=== PATIENT | female | born 1965 | race Caucasian/White ===

== ENCOUNTER 2017-01-31 06:06 | Emergency (ER) | payer BC ==
[~2017-01-31] VITALS: Ht 162.6 cm; Wt 107.4 kg
[~2017-01-31 06:06] MED LIST: PANT40TA PO
[2017-01-31 06:09] VITALS: Ht 162.6 cm; Wt 107.4 kg
[2017-01-31] MEDS ORDERED: ACETAMINOPHEN 500 MG TAB PO ONE (06:21)
[2017-01-31] MEDS ORDERED: ACETAMINOPHEN 325 MG TAB PO STA (06:29)
[2017-01-31] MEDS ORDERED: SODIUM CHLORIDE 0.9% 1000ML 1,000 ML IV STA (06:53)
[2017-01-31] MEDS ORDERED: ONDANSETRON INJ 2 MG/ML 2 ML VIAL IV STA (06:55)
[2017-01-31 06:56] LABS: URINE APPEARANCE CLEAR (CLEAR); URINE BILIRUBIN NEG (NEG); URINE COLOR DK YELLOW; URINE EPITHELIAL CELL AUTO >30 /lpf (0-5); URINE NITRITE NEG (NEG); URINE SPECIFIC GRAVITY 1.024 (1.000-1.030); UROBILINOGEN NEG (NEG)
[2017-01-31 07:05] LABS: MANUAL MICROSCOPIC REQUIRED? NO; REVIEW REQ? YES
[2017-01-31 07:16] LABS: URINE MUCUS PRESENT (NONE PRSENT)
[2017-01-31 07:18] LABS: ZZUR CULT IF INDIC CLEAN CATCH YES
[2017-01-31] MEDS ORDERED: KETOROLAC TROMETHAMINE 30 MG/ML VIAL IV STA (07:34)
--- NOTE | 2017-01-31 07:35 | DIAGNOSTIC IMAGING REPORT ---
CHEST 2 VIEWS ROUTINE CLINICAL HISTORY: fever, cough dyspnea COMPARISON STUDY: No previous studies for comparison. FINDINGS: The bones soft tissues and hemidiaphragms are normal. The cardiomediastinal silhouette is normal. The lungs are clear. The pulmonary vasculature is normal. IMPRESSION: Negative chest. Electronically signed by: Arnold Swenson M.D. 01/31/2017 7:34 AM Dictated Date/Time: 01/31/2017 7:33 AM
[2017-01-31] MEDS ORDERED: OSEL75CA12 PO (07:44)
[2017-01-31 07:57] VITALS: TEMP 37.1
[2017-01-31 07:59] LABS: COMPLETE YES; HEMATOCRIT 40.4 % (37-47); LYMPH % 17.2 %; LYMPH ABS # 0.56 K/uL (1.2-3.4); MEAN CELL VOLUME 91.4 fL (80-100); MEAN CORPUSCULAR HEMOGLOBIN 31.4 pg (25-34); MEAN CORPUSCULAR HGB CONC 34.4 g/dl (32-36); MEAN PLATELET VOLUME 10.4 fL (7.4-10.4); MONO % 14.2 %; NEUT % 68.6 %; PLATELET COUNT 120 K/uL (130-400); RED BLOOD COUNT 4.42 M/uL (4.2-5.4); WHITE BLOOD COUNT 3.25 K/uL (4.8-10.8)
[2017-01-31 08:24] LABS: BUN/CREATININE RATIO 13.4 (10-20); CALCIUM 7.9 mg/dl (8.5-10.1); CREATININE 0.62 mg/dl (0.60-1.20); POTASSIUM 3.2 mmol/L (3.5-5.1)
[2017-01-31] MEDS ORDERED: POTASSIUM CHLORIDE 10 MEQ TABCR PO STA (08:34)
--- NOTE | 2017-01-31 08:39 | EMERGENCY ROOM VISIT NOTE ---
History First contact with patient: 06:43 Chief Complaint: ILLNESS Stated Complaint: SEVERE HEADACHE, BODY ACHE, KIDNEY PAIN History of Present Illness The patient is a 51 year old female who presents to the Emergency Room with complaints of headache, fever and body aches. She also admits to pain over her kidneys. The patient denies any flank pain. The patient denies any sore throat , ear pain, runny nose. She states that the headache is mostly in the frontal region but does radiate to the base of her skull. The patient states she has had similar headaches in the past. She took Tylenol without any relief. The patient states that she has felt chilled but did not take her temperature. She also has had a cough for several days. The patient denies any nausea or vomiting. The patient denies any urinary symptoms of frequency, urgency, dysuria or hematuria. Her current symptoms started 2 days ago. 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 Review of Systems 10 system review was performed and was negative unless stated otherwise history of present illness. Past Medical/Surgical History Medical Problems: (1) Gastroesophageal reflux disease Social History Smoking Status: Never Smoker Alcohol Use: none Housing Status: lives with family Occupation Status: employed Current/Historical Medications Scheduled Oseltamivir (Tamiflu), 75 MG PO BID Allergies Coded Allergies: Nut Tree (Unverified Allergy, Unknown, TINGLING IN MOUTH/THROAT, 01/31/17) Physical Exam Vital Signs Date Time Temp Pulse Resp B/P Pulse Ox O2 Delivery O2 Flow Rate FiO2 01/31/17 07:57 37.1 64 18 116/70 94 Room Air 01/31/17 06:09 38.3 87 18 121/74 96 Room Air Physical Exam PHYSICAL EXAM: Vital Signs were reviewed: Temperature 38.3, blood pressure 121/ 74, pulse 87, respiratory rate 18 Reviewed Nurse's notes and agree. Oxygen saturation is 96 % on room air which is normal . GENERAL: 51-year-old female appears in no acute distress. MENTAL STATUS: Alert, oriented, coherent. EARS: Canals clear. TMs good light reflex, no erythema or fluid level noted. NOSE: Nasal mucosa with moderate erythema engorgement. PHARYNX no erythema, no edema noted. No exudate noted. Airway is adequate. NECK: Supple, non-tender. No lymphadenopathy noted. LUNGS: Clear to auscultation without wheezes rales or rhonchi. CARDIAC: Regular rate and rhythm without murmur. BACK: No CVA tenderness noted. ABDOMEN: Positive bowel sounds all 4 quadrants. Soft, nontender to palpation without organomegaly or masses. SKIN: No rashes noted. Medical Decision & Procedures ER Provider Diagnostic Interpretation: CHEST 2 VIEWS ROUTINE CLINICAL HISTORY: fever, cough dyspnea COMPARISON STUDY: No previous studies for comparison. FINDINGS: The bones soft tissues and hemidiaphragms are normal. The cardiomediastinal silhouette is normal. The lungs are clear. The pulmonary vasculature is normal. IMPRESSION: Negative chest. Electronically signed by: Arnold Swenson M.D. 01/31/2017 7:34 AM Dictated Date/Time: 01/31/2017 7:33 AM Laboratory Results 01/31/17 07:40 Red Blood Count 4.42, Mean Corpuscular Volume 91.4, Mean Corpuscular Hemoglobin 31.4, Mean Corpuscular Hemoglobin Concent 34.4, Mean Platelet Volume 10.4, Neutrophils (%) (Auto) 68.6, Lymphocytes (%) (Auto) 17.2, Monocytes (%) (Auto) 14.2, Eosinophils (%) (Auto) 0.0, Basophils (%) (Auto) 0.0, Neutrophils # (Auto ) 2.23, Lymphocytes # (Auto) 0.56, Monocytes # (Auto) 0.46, Eosinophils # (Auto ) 0.00, Basophils # (Auto) 0.00 01/31/17 07:40 Test 01/31/17 06:20 01/31/17 06:25 01/31/17 07:40 Urine Color DK YELLOW Urine Appearance CLEAR (CLEAR) Urine pH 6.0 (4.5-7.5) Urine Specific House 1.024 (1.000-1.030) Urine Protein NEG (NEG) Urine Glucose (UA) NEG (NEG) Urine Ketones 1+ (NEG) Urine Occult Blood TRACE (NEG) Urine Nitrite NEG (NEG) Urine Bilirubin NEG (NEG) Urine Urobilinogen NEG (NEG) Urine Leukocyte Esterase SMALL (NEG) Urine WBC (Auto) 5-10 /hpf (0-5) Urine RBC (Auto) 0-4 /hpf (0-4) Urine Hyaline Casts (Auto) 1-5 /lpf (0-5) Urine Epithelial Cells (Auto) >30 /lpf (0-5) Urine Bacteria (Auto) 1+ (NEG) Urine Renal Epithelial Cells /lpf (0-5) Urine Mucus PRESENT (NONE PRSENT) Influenza Type A Antigen Neg for Influ A (NEG) Influenza Type B Antigen POS for Influ B (NEG) White Blood Count 3.25 K/uL (4.8-10.8) Red Blood Count 4.42 M/uL (4.2-5.4) Hemoglobin 13.9 g/dL (12.0-16.0) Hematocrit 40.4 % (37-47) Mean Corpuscular Volume 91.4 fL (80-100) Mean Corpuscular Hemoglobin 31.4 pg (25-34) Mean Corpuscular Hemoglobin Concent 34.4 g/dl (32-36) Platelet Count 120 K/uL (130-400) Mean Platelet Volume 10.4 fL (7.4-10.4) Neutrophils (%) (Auto) 68.6 % Lymphocytes (%) (Auto) 17.2 % Monocytes (%) (Auto) 14.2 % Eosinophils (%) (Auto) 0.0 % Basophils (%) (Auto) 0.0 % Neutrophils # (Auto) 2.23 K/uL (1.4-6.5) Lymphocytes # (Auto) 0.56 K/uL (1.2-3.4) Monocytes # (Auto) 0.46 K/uL (0.11-0.59) Eosinophils # (Auto) 0.00 K/uL (0-0.5) Basophils # (Auto) 0.00 K/uL (0-0.2) RDW Standard Deviation 42.0 fL (36.4-46.3) RDW Coefficient of Variation 12.4 % (11.5-14.5) Immature Granulocyte % (Auto) 0.0 % Immature Granulocyte # (Auto) 0.00 K/uL (0.00-0.02) Anion Gap 10.0 mmol/L (3-11) Est Creatinine Clear Calc Drug Dose 127.0 ml/min Estimated GFR () 120.2 Estimated GFR (Non- 103.7 BUN/Creatinine Ratio 13.4 (10-20) Calcium Level 7.9 mg/dl (8.5-10.1) Total Bilirubin 0.5 mg/dl (0.2-1) Direct Bilirubin 0.1 mg/dl (0-0.2) Aspartate Amino Transf (AST/SGOT) 27 U/L (15-37) Alanine Aminotransferase (ALT/SGPT) 24 U/L (12-78) Alkaline Phosphatase 82 U/L (45-117) Total Protein 6.7 gm/dl (6.4-8.2) Albumin 3.3 gm/dl (3.4-5.0) Lipase 61 U/L (73-393) Medications Administered Medications (Trade) Dose Ordered Sig/Chau Route Start Time Stop Time Status Last Admin Dose Admin Acetaminophen 1000 mg 1,000 mg STK-MED ONCE PO 01/31/17 06:21 01/31/17 06:25 DC 01/31/17 06:26 1,000 MG Sodium Chloride (Nss 1000ml) 1,000 ml @ 999 mls/hr Q1H1M STAT IV 01/31/17 06:53 01/31/17 07:53 DC 01/31/17 07:48 999 MLS/HR Ondansetron HCl (Zofran Inj) 4 mg NOW STAT IV 01/31/17 06:55 01/31/17 06:56 DC 01/31/17 07:55 4 MG Ketorolac Tromethamine (Toradol Inj) 30 mg NOW STAT IV 01/31/17 07:34 01/31/17 07:36 DC 01/31/17 07:54 30 MG ED Course The patient was evaluated. IV access was obtained. Patient was given 1 L normal saline wide-open. Patient was given Toradol 30 mg IV, Tylenol 1 g by mouth. CBC differential, renal profile was ordered. Urinalysis was ordered. Urine was reviewed and revealed +1 blood, small amount of leukocytes and some bacteria but there is also signs of contamination. This will be sent for culture. Rapid influenza was negative for a but positive for influenza B. Labs are reviewed. Labs are unremarkable except for a low potassium at 3.2. The patient was given a door 10 mEq by mouth. She was reevaluated and stated that her headache had resolved. The patient was discharged home in stable condition. Medical Decision Differential diagnosis include influenza, pneumonia, viral URI, bronchitis, acute sinusitis, UTI, pyelonephritis Impression Primary Impression: Influenza B Additional Impression: Hypokalemia Departure Information Dispostion Home / Self-Care Condition GOOD Prescriptions Oseltamivir (Tamiflu) 75 Mg Cap 75 MG PO BID for 5 Days, #10 CAP Prov: Susana Swenson PA-C 01/31/17 Referrals RV. Abdi MD (PCP) Forms HOME CARE DOCUMENTATION FORM, IMPORTANT VISIT INFORMATION, WORK / SCHOOL INSTRUCTIONS Patient Instructions My [facility] [employer] Additional Instructions Recommend eating a banana daily. Follow-up with your family doctor in one to 2 weeks for recheck. Take Tamiflu as prescribed. May also use [id number] symptomatic treatment as well as Tylenol and/or ibuprofen as needed for fever and body aches. Do not return to work until you're without a fever for 24 hours. Problem Qualifiers
[2017-01-31 08:58] VITALS: BP 118/65; PULSE 76; O2SAT 96
== END 2017-01-31 08:59 | disposition home or self-care (01) ==
LOC: C.EDB 06:08 → C.EDA 08:59
DX: J11.1 Influenza due to unidentified influenza virus with other respiratory manifestations (principal); E87.6 Hypokalemia; K21.9 Gastro-esophageal reflux disease without esophagitis

== ENCOUNTER 2018-07-06 13:26 | Observation (INO) | payer BC ==
[~2018-07-06] VITALS: Ht 162.6 cm; Wt 114.2 kg
[2018-07-06] MEDS ORDERED: SODIUM CHLORIDE 0.9% 1000ML 500 ML IV STA (14:13)
[2018-07-06] MEDS ORDERED: ASPIRIN 81 MG CHEW PO STA (14:13)
[2018-07-06] MEDS ORDERED: NITROGLYCERIN 2% OINTMENT 30GM TUBE EXT ONE ×2 (14:15→14:25)
[2018-07-06 14:31] LABS: INR 0.9 (0.9-1.1); PTT PATIENT 24.6 SECONDS (21.0-31.0)
[2018-07-06 14:32] LABS: HEMATOCRIT 43.4 % (37-47); HEMOGLOBIN 14.4 g/dL (12.0-16.0); MEAN CELL VOLUME 92.9 fL (80-100); MEAN CORPUSCULAR HEMOGLOBIN 30.8 pg (25-34); MEAN CORPUSCULAR HGB CONC 33.2 g/dl (32-36); MEAN PLATELET VOLUME 10.3 fL (7.4-10.4); PLATELET COUNT 201 K/uL (130-400); RED CELL DISTRIBUTION WIDTH CV 13.1 % (11.5-14.5); RED CELL DISTRIBUTION WIDTH SD 44.7 fL (36.4-46.3); WHITE BLOOD COUNT 7.35 K/uL (4.8-10.8)
--- NOTE | 2018-07-06 14:37 | DIAGNOSTIC IMAGING REPORT ---
CHEST ONE VIEW PORTABLE CLINICAL HISTORY: CHEST PAIN COMPARISON STUDY: Chest radiograph January 31, 2017. FINDINGS: Lung volumes are mildly diminished. Interstitial prominence is likely due to a hypoventilatory study. There is no evidence for pulmonary edema or pneumonia. Cardiomediastinal silhouette is unremarkable. IMPRESSION: No acute cardiopulmonary findings. Electronically signed by: Bhavik Moraes M.D. 07/06/2018 2:36 PM Dictated Date/Time: 07/06/2018 2:35 PM
[2018-07-06 14:38] LABS: ALBUMIN 3.6 gm/dl (3.4-5.0); ALKALINE PHOSPHATASE 118 U/L (45-117); ALT/SGPT 24 U/L (12-78); AST/SGOT 19 U/L (15-37); BLOOD UREA NITROGEN 17 mg/dl (7-18); CALCIUM 8.8 mg/dl (8.5-10.1); CARBON DIOXIDE 26 mmol/L (21-32); CREATININE 0.91 mg/dl (0.60-1.20); GLUCOSE 78 mg/dl (70-99); POTASSIUM 3.8 mmol/L (3.5-5.1); SODIUM 140 mmol/L (136-145); TOTAL PROTEIN 7.7 gm/dl (6.4-8.2)
[2018-07-06] MEDS ORDERED: OPTIRAY 320 IV PRN (15:30)
--- NOTE | 2018-07-06 16:24 | DIAGNOSTIC IMAGING REPORT ---
CT ANGIOGRAPHY OF THE CHEST, PULMONARY EMBOLUS PROTOCOL CLINICAL HISTORY: Chest pain and shortness of breath. COMPARISON STUDY: Chest radiograph January 31, 2017 and July 06, 2018. TECHNIQUE: Following IV administration of 86 mL of Optiray-320, helical axial images of the chest were obtained utilizing the pulmonary embolus protocol. Maximal intensity projections and sagittal and coronal reformats were viewed on an independent 3D workstation. IV contrast was administered without complication. A dose lowering technique was utilized adhering to the principles of ALARA. CT DOSE: 630.94 mGy.cm FINDINGS: No pulmonary embolus is identified. There is no thoracic aortic dissection. The size of the heart is normal. There is no pericardial effusion. No pathologically enlarged thoracic lymph nodes are noted. Central airways are patent. No pneumothorax or pleural effusion is present. There is no consolidation to suggest pneumonia. Bony thorax and upper abdomen are unremarkable. IMPRESSION: 1. No pulmonary emboli identified. 2. No acute intrathoracic findings. Electronically signed by: Bhavik Moraes M.D. 07/06/2018 4:23 PM Dictated Date/Time: 07/06/2018 4:16 PM
--- NOTE | 2018-07-06 16:44 | EMERGENCY ROOM VISIT NOTE ---
History Report prepared by Joby: Vidhi Simmons Under the Supervision of: Dr. Romeo Roberts M.D. 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 She describes her chest pain as compression and rates it as a 5/10 in severity. Pt reports activity worsens her pain. She follows with Dr. 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 A total of 10 systems reviewed and were otherwise negative. Past Medical & Surgical Medical Problems: (1) Gastroesophageal reflux disease Family History Cancer Hypertension Social History Smoking Status: Never Smoker Alcohol Use: none Housing Status: lives with family Occupation Status: employed Current/Historical Medications No Active Prescriptions or Reported Meds Allergies Coded Allergies: Nut Tree (Unverified Allergy, Unknown, TINGLING IN MOUTH/THROAT, 05/07/18) Physical Exam Vital Signs Date Time Temp Pulse Resp B/P (MAP) Pulse Ox O2 Delivery O2 Flow Rate FiO2 07/06/18 16:39 77 16 145/80 97 Room Air 07/06/18 14:58 76 18 178/106 99 Room Air 07/06/18 14:34 70 07/06/18 14:32 99 Room Air 07/06/18 14:31 99 Room Air 07/06/18 13:31 36.5 71 18 146/93 100 Room Air Physical Exam GENERAL: Patient is in no acute distress. HEENT: No acute trauma, normocephalic atraumatic, mucous membranes moist, no nasal congestion, no scleral icterus. NECK: No stridor, no adenopathy, no meningismus, trachea is midline. LUNGS: Clear to auscultation bilaterally, no wheeze, no rhonchi, breath sounds equal. CHEST: Somewhat tender over the left anterior chest wall. HEART: Without murmurs gallops or rubs, regular rate and rhythm. ABDOMEN: Soft, nontender, bowel sounds positive, no hernias, no peritonitis. EXTREMITIES: No cyanosis or edema, full range of motion of all the joints without pain or difficulty, no signs for acute trauma. NEUROLOGIC: Oriented x 3, no acute motor or sensory deficits, no focal weakness. SKIN: No rash, no jaundice, no diaphoresis. Medical Decision & Procedures ER Provider Diagnostic Interpretation: Radiology results as stated below per my review and radiologist interpretation: CHEST ONE VIEW PORTABLE CLINICAL HISTORY: CHEST PAIN COMPARISON STUDY: Chest radiograph January 31, 2017. FINDINGS: Lung volumes are mildly diminished. Interstitial prominence is likely due to a hypoventilatory study. There is no evidence for pulmonary edema or pneumonia. Cardiomediastinal silhouette is unremarkable. IMPRESSION: No acute cardiopulmonary findings. Electronically signed by: Bhavik Moraes M.D. 07/06/2018 2:[address] ANGIOGRAPHY OF THE CHEST, PULMONARY EMBOLUS PROTOCOL CLINICAL HISTORY: Chest pain and shortness of breath. COMPARISON STUDY: Chest radiograph January 31, 2017 and July 06, 2018. TECHNIQUE: Following IV administration of 86 mL of Optiray-320, helical axial images of the chest were obtained utilizing the pulmonary embolus protocol. Maximal intensity projections and sagittal and coronal reformats were viewed on an independent 3D workstation. IV contrast was administered without complication. A dose lowering technique was utilized adhering to the principles of ALARA. CT DOSE: 630.94 mGy.cm FINDINGS: No pulmonary embolus is identified. There is no thoracic aortic dissection. The size of the heart is normal. There is no pericardial effusion. No pathologically enlarged thoracic lymph nodes are noted. Central airways are patent. No pneumothorax or pleural effusion is present. There is no consolidation to suggest pneumonia. Bony thorax and upper abdomen are unremarkable. IMPRESSION: 1. No pulmonary emboli identified. 2. No acute intrathoracic findings. Electronically signed by: Bhavik Moraes M.D. 07/06/2018 4:23 PM Laboratory Results 07/06/18 13:55 07/06/18 13:55 Test 07/06/18 13:55 Red Blood Count 4.67 M/uL (4.2-5.4) Mean Corpuscular Volume 92.9 fL (80-100) Mean Corpuscular Hemoglobin 30.8 pg (25-34) Mean Corpuscular Hemoglobin Concent 33.2 g/dl (32-36) RDW Standard Deviation 44.7 fL (36.4-46.3) RDW Coefficient of Variation 13.1 % (11.5-14.5) Mean Platelet Volume 10.3 fL (7.4-10.4) Prothrombin Time 9.9 SECONDS (9.0-12.0) Prothromb Time International Ratio 0.9 (0.9-1.1) Activated Partial Thromboplast Time 24.6 SECONDS (21.0-31.0) Partial Thromboplastin Ratio 0.9 D-Dimer 1140 ug/L FEU (0-500) Anion Gap 9.0 mmol/L (3-11) Est Creatinine Clear Calc Drug Dose 90.7 ml/min Estimated GFR () 82.9 Estimated GFR (Non- 71.5 BUN/Creatinine Ratio 19.0 (10-20) Calcium Level 8.8 mg/dl (8.5-10.1) Total Bilirubin 0.4 mg/dl (0.2-1) Aspartate Amino Transf (AST/SGOT) 19 U/L (15-37) Alanine Aminotransferase (ALT/SGPT) 24 U/L (12-78) Alkaline Phosphatase 118 U/L (45-117) Troponin I < 0.015 ng/ml (0-0.045) Total Protein 7.7 gm/dl (6.4-8.2) Albumin 3.6 gm/dl (3.4-5.0) Globulin 4.1 gm/dl (2.5-4.0) Albumin/Globulin Ratio 0.9 (0.9-2) Laboratory results reviewed by me. Medications Administered Medications (Trade) Dose Ordered Sig/Chau Route Start Time Stop Time Status Last Admin Dose Admin Aspirin (Aspirin Chew) 324 mg NOW STAT PO 07/06/18 14:13 07/06/18 14:16 DC 07/06/18 14:26 324 MG Nitroglycerin (Nitroglycerin 2% Oint) 1 inch NOW ONCE EXT 07/06/18 14:15 07/06/18 14:16 DC 07/06/18 14:26 1 INCH Sodium Chloride 500 ml @ 999 mls/hr Q31M STAT IV 07/06/18 14:13 07/06/18 14:43 DC 07/06/18 14:13 999 MLS/HR ECG Per My Interpretation Indication: chest pain Rate (beats per minute): 82 Rhythm: normal sinus Findings: other (no ST elevation, no PVCs) ED Course 1410: The patient was evaluated in room C6. A complete history and physical exam was performed. 1413: Ordered Sodium Chloride 500 ml @ 999 mls/hr IV, Aspirin 324 mg PO 1415: Ordered Nitroglycerin 1 inch EXT 1442: I checked on the patient at this time. I recommended she stay in the hospital for further evaluation. She is in agreement with this plan. 1445: Discussed the patient's case with Dr. Collins, [facility] Hospitalist. The patient will be evaluated for further management. 1518: I checked on the patient at this time. I updated her on the need of a CT of her chest. 1623: CT is negative.Shows no evidence of a PE. Medical Decision Differential diagnosis: Etiologies such as musculoskeletal pain, OH, angina, aortic dissection, PE, pneumothorax, anemia, as well as other traumatic pathologies were entertained. There is no leukocytosis or concerning anemia. No significant electrolyte abnormality, kidney failure or hepatitis. No coagulopathy. EKG shows a normal sinus rhythm, no acute ischemia. Cardiac enzyme testing 1 is not consistent with acute cardiac injury. Chest x-ray does not show mediastinal widening, pneumonia or pneumothorax. D-dimer was elevated. Chest CT does not show evidence for PE, no evidence for aortic dissection. Patient received oral aspirin, nitroglycerin paste, she does feel improved. She was given IV saline. Patient requires a hospital stay. She has exertional chest pain with associated symptoms. I do think a cardiac workup is warranted. I spoke to the patient and hospice case manager. The on-call hospitalist was consulted. Of note, there is some tenderness over the left anterior chest wall, there may be a muscular skeletal component to her pain. Medication Reconcilliation Current Medication List: was personally reviewed by me Blood Pressure Screening Patient's blood pressure: Elevated blood pressure Referred to Hospitalist Consults Time Called: 1442 Consulting Physician: Dr. Collins, [facility] Hospitalist Returned Call: 1445 Discussed the patient's case with Dr. Collins, [facility] Hospitalist. The patient will be evaluated for further management. Impression Primary Impression: Precordial chest pain Scribe Attestation The scribe's documentation has been prepared under my direction and personally reviewed by me in its entirety. I confirm that the note above accurately reflects all work, treatment, procedures, and medical decision making performed by me. Departure Information Dispostion Being Evaluated By Hospitalist (Dr. Collins, [facility] Hospitalist) Prescriptions No Active Prescriptions or Reported Meds Referrals RV. Abdi MD (PCP) Patient Instructions My [facility]
[2018-07-06] MEDS ORDERED: ZOLPIDEM TARTRATE 5 MG TAB PO PRN (17:45)
[2018-07-06] MEDS ORDERED: ACETAMINOPHEN 325 MG TAB PO PRN (17:45)
[2018-07-06] MEDS ORDERED: MoRPHine SULFATE 2 MG/ML CARP IV PRN (17:45)
[2018-07-06] MEDS ORDERED: POLYETHYLENE (MIRALAX) 17 GM PACK PO PRN (17:45)
[2018-07-06] MEDS ORDERED: MAGNESIUM HYDROXIDE SUSP 30 ML UDC PO PRN (17:45)
[2018-07-06] MEDS ORDERED: ALUMINUM/MAGNESIUM/SIMETH (MAALOX MAX) 30 ML UDC PO PRN (17:45)
[2018-07-06] MEDS ORDERED: ONDANSETRON INJ 2 MG/ML 2 ML VIAL IV PRN (17:45)
[2018-07-06] MEDS ORDERED: NITROGLYCERIN 0.4 MG SL PER TAB CHARGE SL PRN (17:45)
[2018-07-06] MEDS ORDERED: IV FLUIDS COMPLETED PRN (18:15)
--- NOTE | 2018-07-06 18:29 | History and Physical ---
History & Physical Date & Time of Service: Jul 06, 2018 at 18:10 Chief Complaint: Chest Pain, Sob Primary Care Physician: RV. Abdi MD History of Present Illness Source: patient, hospital records, other 53 y/o F who does not report a significant medical history. She had onset of central CP when walking around 4 days prior. She reports that this has recurred daily since then. Today the pain was more intense and lasted longer. The pain is nonradiating and accompanied by SOB, nausea and diaphoresis. Initial labs and an EKG obtained in the ER did not support acute ischemia. Her D dimer was elevated so that a CTA was ordered. This proved negative for PE. 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 Smoking Status: Never Smoker Occupational Status: employed Allergies Coded Allergies: Nut Tree (Unverified Allergy, Unknown, TINGLING IN MOUTH/THROAT, 05/07/18) Home Medications No Active Prescriptions or Reported Meds Review of Systems Constitutional: + sweats, No fever, No chills Eyes: No worsening of vision ENT: No hearing loss, No unusual epistaxis, No nasal symptoms Respiratory: + shortness of breath, No cough, No sputum, No wheezing Cardiovascular: + chest pain Abdomen: + nausea, No pain Musculoskeletal: No joint pain Genitourinary - Female: No dysuria, No urinary frequency Neurologic: No memory loss, No paralysis, No weakness Psychiatric: No depression symptoms Endocrine: No fatigue Hematologic / Lymphatic: No abnormal bleeding/bruising Integumentary: No rash Allergic / Immunologic: No environmental allergies Physical Exam Vital Signs Date Time Temp Pulse Resp B/P (MAP) Pulse Ox O2 Delivery O2 Flow Rate FiO2 07/06/18 16:39 77 16 145/80 97 Room Air 07/06/18 14:58 76 18 178/106 99 Room Air 07/06/18 14:34 70 07/06/18 14:32 99 Room Air 07/06/18 14:31 99 Room Air 07/06/18 13:31 36.5 71 18 146/93 100 Room Air General Appearance: WD/WN, no apparent distress, + obese, + pertinent finding ( PLeasant, overweight, middle-aged F - no distress) Head: normocephalic Eyes: normal inspection ENT: normal ENT inspection Neck: supple, no JVD Respiratory/Chest: chest non-tender, lungs clear, normal breath sounds Cardiovascular: regular rate, rhythm Abdomen/GI: normal bowel sounds, non tender, soft Back: normal inspection, no CVA tenderness Extremities/Musculoskelatal: normal inspection, no calf tenderness, normal capillary refill 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, no motor/sensory deficits, alert, oriented x 3 Skin: normal color Diagnostics Laboratory Results Results Past 24 Hours Test 07/06/18 13:55 Range/Units White Blood Count 7.35 4.8-10.8 K/uL Red Blood Count 4.67 4.2-5.4 M/uL Hemoglobin 14.4 12.0-16.0 g/dL Hematocrit 43.4 37-47 % Mean Corpuscular Volume 92.9 80-100 fL Mean Corpuscular Hemoglobin 30.8 25-34 pg Mean Corpuscular Hemoglobin Concent 33.2 32-36 g/dl RDW Standard Deviation 44.7 36.4-46.3 fL RDW Coefficient of Variation 13.1 11.5-14.5 % Platelet Count 201 130-400 K/uL Mean Platelet Volume 10.3 7.4-10.4 fL Prothrombin Time 9.9 9.0-12.0 SECONDS Prothromb Time International Ratio 0.9 0.9-1.1 Activated Partial Thromboplast Time 24.6 21.0-31.0 SECONDS Partial Thromboplastin Ratio 0.9 D-Dimer 1140 0-500 ug/L FEU Sodium Level 140 136-145 mmol/L Potassium Level 3.8 3.5-5.1 mmol/L Chloride Level 105 98-107 mmol/L Carbon Dioxide Level 26 21-32 mmol/L Anion Gap 9.0 3-11 mmol/L Blood Urea Nitrogen 17 7-18 mg/dl Creatinine 0.91 0.60-1.20 mg/dl Est Creatinine Clear Calc Drug Dose 90.7 ml/min Estimated GFR () 82.9 Estimated GFR (Non- 71.5 BUN/Creatinine Ratio 19.0 10-20 Random Glucose 78 70-99 mg/dl Calcium Level 8.8 8.5-10.1 mg/dl Total Bilirubin 0.4 0.2-1 mg/dl Aspartate Amino Transf (AST/SGOT) 19 15-37 U/L Alanine Aminotransferase (ALT/SGPT) 24 12-78 U/L Alkaline Phosphatase 118 45-117 U/L Troponin I < 0.015 0-0.045 ng/ml Total Protein 7.7 6.4-8.2 gm/dl Albumin 3.6 3.4-5.0 gm/dl Globulin 4.1 2.5-4.0 gm/dl Albumin/Globulin Ratio 0.9 0.9-2 Diagnostic Radiology CTA: 1. No pulmonary emboli identified. 2. No acute intrathoracic findings. EKG NSR Impression Assessment and Plan 53 y/o F who does not report a significant medical history. She had onset of central CP when walking around 4 days prior. She reports that this has recurred daily since then. Today the pain was more intense and lasted longer. The pain is nonradiating and accompanied by SOB, nausea and diaphoresis. Initial labs and an EKG obtained in the ER did not support acute ischemia. Her D dimer was elevated so that a CTA was ordered. This proved negative for PE. The pt will be placed on telemetry. We will trend her enzymes and provide ASA. We will check a fasting lipid profile AM. She will be scheduled for an AM stress test. It is noted that her BP has been intermittently high. She received NTG on arrival and we will provide a low dose of a B ashleigh to gauge effect. This should be trended to determine if outpt treatment or referral is merited. Full code - Heparin prophylaxis Total time for this admit including review of labs, meds, imaging, records - discussion with pt and ER attending - 35 min Resuscitation Status VTE Prophylaxis Will order VTE Prophylaxis: Yes
[2018-07-06 19:07] VITALS: BP 169/103; PULSE 77; TEMP 36.7; O2SAT 96; Ht 162.6 cm; Wt 114.2 kg
[2018-07-06] MEDS ORDERED: METOPROLOL TARTRATE 25 MG TAB PO ONE (19:30)
[2018-07-06] MEDS: D5NSS + 20MEQ KCL 1,000 ML IV SCH (19:39)
[2018-07-06 20:00] VITALS: O2SAT 96
[2018-07-06] MEDS: HEPARIN SOD 5000 UNIT/0.5 ML CARP SQ SCH (20:44)
[2018-07-06 23:22] VITALS: BP 135/71; PULSE 75; TEMP 37; O2SAT 96
[2018-07-07 02:59] LABS: CHOLESTEROL 157 mg/dl (0-200); LDL CHOLESTEROL CALCULATED 97 mg/dl
[2018-07-07 03:28] VITALS: BP 121/81; PULSE 74; TEMP 37; O2SAT 97
[2018-07-07] MEDS: D5NSS + 20MEQ KCL 1,000 ML IV SCH (04:23)
[2018-07-07] MEDS: HEPARIN SOD 5000 UNIT/0.5 ML CARP SQ SCH (05:42)
[2018-07-07 06:41] VITALS: BP 130/86; PULSE 72; TEMP 37.1; O2SAT 98
[2018-07-07] MEDS ORDERED: ASPIRIN 81 MG ECTAB PO SCH (09:00)
[2018-07-07 11:44] VITALS: BP 136/63; PULSE 74; TEMP 37; O2SAT 91
--- NOTE | 2018-07-07 12:12 | Discharge Instructions ---
Discharge Instructions Date of Service Jul 07, 2018. Admission Reason for Admission: Chest Pain In Adult Discharge Discharge Diagnosis / Problem: non cardiac chest pain Discharge Goals Goal(s): Diagnostic testing, Therapeutic intervention Activity Recommendations Activity Limitations: as noted below Lifting Limitations: gradually increase as tolerated Driving or Machine Use: no limitations . Current Hospital Diet Patient's current hospital diet: Discharge Diet Recommended Diet: AHA Diet (Heart Healthy) Procedures Procedures Performed: Cardiac Stress Echo is negative for reproducible chest pain or malfunction Pending Studies Studies pending at discharge: no Laboratory Results Lipid Panel Test 07/07/18 02:14 Range/Units Triglycerides Level 46 0-150 mg/dl Cholesterol Level 157 0-200 mg/dl HDL Cholesterol 51 mg/dl Cholesterol/HDL Ratio 3.1 LDL Cholesterol, Calculated 97 mg/dl Medical Emergencies . Who to Call and When: Medical Emergencies: If at any time you feel your situation is an emergency, please call 911 immediately. . Non-Emergent Contact Non-Emergency issues call your: Primary Care Provider (keep aug 01 apt [facility] [address] Roland) Call Non-Emergent contact if: temperature is above 101, your pain is not controlled . . "Provider Documentation" section prepared by Blas Rhoades. .
[2018-07-07 12:15] VITALS: BP 142/90; PULSE 70; TEMP 37.1; O2SAT 98
[2018-07-07 12:16] VITALS: BP 142/90; PULSE 70; TEMP 37.1; O2SAT 98
--- NOTE | 2018-07-07 13:38 | Discharge Summary ---
Discharge Summary Date of Service Jul 07, 2018. Discharge Summary Admission Date: Jul 06, 2018 at 18:10 Discharge Date: Jul 07, 2018 Discharge Disposition: Home Principal Diagnosis: non cardiac chest pain Procedures: stress test Medication Reconciliation Medication Profile: No Active Prescriptions or Reported Meds Discharge Exam Review of Systems: Constitutional: No fever, No chills Cardiovascular: No chest pain, No orthopnea Abdomen: No pain, No nausea Physical Exam: General Appearance: WD/WN, no apparent distress Eyes: normal inspection, sclerae normal Neck: supple, no JVD Respiratory/Chest: chest non-tender, lungs clear Cardiovascular: regular rate, rhythm, no murmur Hospital Course Pt was presented with exertional chest pain , had negative serial troponin and underwent a stress echocardiogram that ruled out chest pain associated with myocardial malfunction, additionally did have elevated D Dimer on presentation and CT angiogram ruled out PE We discussed possibly starting PPI or H2 pt opted to speak to PCP about this I also recommended she consider screening colonoscopy Total Time Spent: Greater than 30 minutes This includes examination of the patient, discharge planning, medication reconciliation, and communication with other providers. Discharge Instructions Please refer to the electronic Patient Visit Report (Discharge Instructions) for additional information.
--- NOTE | 2018-07-07 16:38 | EXERCISE STRESS ECHO ---
*NOTICE TO RECEIVING [employer] This information is strictly Confidential and protected under [place] law. [place] law prohibits you from making any further disclosure of this information unless further disclosure is expressly permitted by the written consent of the person to whom it pertains or is authorized by law. A general authorization for the release of medical or other information is not sufficient for this purpose. Hospital accepts no responsibility if the information is made available to any other person, INCLUDING THE PATIENT. Interpretation Summary * Name: NANDINI OLIVA Study Date: 07/07/2018 09:51 AM BP: 142/66 mmHg * Patient Location: C.2E\S\E203\S\1 HR: 67 * : 1965 (M/d/yyyy) Gender: Female Height: 64 in * Age: 53 yrs Ethnicity: CA Weight: 251 lb * Ordering Physician: Blas Rhoades * Referring Physician: Self, Referred * Performed By: Lori Mckeon RCS * * Reason For Study: CHEST PAIN * BSA: 2.2 m2 * -- Conclusions -- * 1. Negative exercise stress echo for ischemia at 90% MPHR. * 2. Negative stress ECG for ischemia. * 3. Exercised 4:01 min, acheiving 5.8 METS. No exercise induced chest pain. * 4. Normal resting LV size and function. EF 55-60%. Normal RV size and function. No significant valvular pathology. * 5. No prior studies for comparison. Procedure Details * ECHOEX, CPT #[id number] * ECHO COLOR FLOW, CPT #[id number] * ECHO DOPPLER, CPT #[id number] Left Ventricular Findings with Stress * This was essentially a normal study. Left Ventricle * The left ventricle is grossly normal size. * There is normal left ventricular wall thickness. * Ejection Fraction = 55-60%. * The left ventricular ejection fraction increases normally with stress. The left ventricular end-systolic cavity size reduces post-stress (normal response). The left ventricular wall motion with stress is normal. Right Ventricle * The right ventricle is grossly normal size. * The right ventricular systolic function is normal as assessed by tricuspid annular plane systolic excursion (TAPSE) (normal >1.5 cm). Atria * The left atrial size is normal. * Right atrial size is normal. * No ASD detected; PFO is not assessed. Mitral Valve * The mitral valve is grossly normal. * There is no mitral valve stenosis. * There is trace mitral regurgitation. Tricuspid Valve * The tricuspid valve is not well visualized, but is grossly normal. * There is trace tricuspid regurgitation. * Right ventricular systolic pressure is normal. Aortic Valve * The aortic valve is normal in structure and function. * The aortic valve is trileaflet. * No hemodynamically significant valvular aortic stenosis. * There is no significant aortic regurgitation. Pulmonic Valve * The pulmonary valve is inadequately visualized, but the Doppler data is adequate for interpretation. * There is no significant pulmonary regurgitation. Great Vessels * The aortic root and proximal ascending aorta are normal sized. Pericardium * There is no pericardial effusion. Stress Parameters * Normal baseline electrocardiogram. * Stress ECG: No ST changes. No arrhythmias. * No arrhythmia were noted with stress. * Rest heart rate was '67' BPM. * Rest blood pressure was '142' * Maximum heart rate achieved was 66 bpm. * Maximum heart rate was 90 % of maximum age-predicted heart rate. * Maximum blood pressure was '146/88' * Total exercise time was '4:01' * Maximum exercise MET level achieved was '5.8' METS * Maximum treadmill speed was '2.5' miles per hour. * Maximum treadmill elevation was '12'% grade. * Exercise was terminated due to 'fatigue' Left Ventricular Findings with Stress * The study was technically good with many images being of high quality. MMode 2D Measurements and Calculations IVSd 0.87 cm IVSs 1.2 cm LVIDd 4.9 cm LVIDs 3.2 cm LVPWd 0.85 cm LVPWs 1.3 cm IVS/LVPW 1.0 FS 35.0 % EDV(Teich) 110.4 ml ESV(Teich) 39.6 ml EF(Teich) 64.1 % EDV(cubed) 114.4 ml ESV(cubed) 31.4 ml EF(cubed) 72.5 % % IVS thick 33.1 % % LVPW thick 59.4 % LV mass(C)d 140.9 grams LV mass(C)dI 65.4 grams/m\S\2 LV mass(C)s 125.0 grams LV mass(C)sI 58.0 grams/m\S\2 SV(Teich) 70.8 ml SI(Teich) 32.9 ml/m\S\2 SV(cubed) 83.0 ml SI(cubed) 38.5 ml/m\S\2 Ao root diam 3.4 cm Ao root area 9.3 cm\S\2 ACS 1.5 cm LA dimension 3.9 cm asc Aorta Diam 2.6 cm LA/Ao 1.1 EDV(MOD-sp4) 93.0 ml ESV(MOD-sp4) 47.0 ml EF(MOD-sp4) 49.5 % EDV(MOD-sp2) 116.0 ml ESV(MOD-sp2) 49.0 ml EF(MOD-sp2) 57.8 % SV(MOD-sp4) 46.0 ml SI(MOD-sp4) 21.4 ml/m\S\2 SV(MOD-sp2) 67.0 ml SI(MOD-sp2) 31.1 ml/m\S\2 Doppler Measurements and Calculations MV E max rodolfo 80.2 cm/sec MV A max rodolfo 62.1 cm/sec MV E/A 1.3 MV P1/2t max rodolfo 97.8 cm/sec MV P1/2t 68.1 msec MVA(P1/2t) 3.2 cm\S\2 MV dec slope 420.7 cm/sec\S\2 MV dec time 0.23 sec Ao V2 max 132.7 cm/sec Ao max PG 7.0 mmHg Ao max PG (full) 3.4 mmHg LV V1 max PG 3.6 mmHg LV V1 max 95.1 cm/sec PA V2 max 100.9 cm/sec PA max PG 4.1 mmHg TR max rodolfo 209.1 cm/sec
== END 2018-07-07 12:45 | disposition home or self-care (01) ==
LOC: C.EDB 13:28 → EDBEDREQ 18:06 → C.2E 18:10 → ENRESERV 18:21
PROVIDERS: ADMIT Internal Medicine; ATTEND Internal Medicine
DX: R07.89 Other chest pain (principal); E66.9 Obesity, unspecified; K21.9 Gastro-esophageal reflux disease without esophagitis; Z82.49 Family history of ischemic heart disease and other diseases of the circulatory system; Z68.42 Body mass index [BMI] 45.0-49.9, adult

== ENCOUNTER 2022-05-07 21:50 | Inpatient (IN) ==
[2022-05-08 01:24] LABS: Basophils # (auto) 0.01 K/uL (0-0.2); Basophils % (auto) 0.1 %; Eosinophils # (auto) 0.15 K/uL (0-0.5); Eosinophils % (auto) 1.1 %; Hematocrit (blood only) 42.5 % (37-47); Hemoglobin 14.1 g/dL (12.0-16.0); Immature Granulocytes # (auto) 0.04 K/uL (0.00-0.02); Immature Granulocytes % (auto) 0.3 %; Mean Corpuscular Hemoglobin 30.9 pg (25-34); Mean Corpuscular Hgb Conc 33.2 g/dL (32-36); Mean Corpuscular Volume 93.2 fL (80-100); Monocytes # (auto) 0.86 K/uL (0.11-0.59); Monocytes % (auto) 6.2 %; Neutrophils # (auto) 11.61 K/uL (1.4-6.5); Neutrophils % (auto) 84.3 %; Platelet Count 200 K/uL (130-400); RDW Standard Deviation 44.7 fL (36.4-46.3); Red Blood Count 4.56 M/uL (4.2-5.4); White Blood Count 13.77 K/uL (4.8-10.8)
[2022-05-08 01:39] LABS: Albumin Globulin Ratio 1.3 (0.9-2); Albumin Level 3.9 gm/dl (3.4-5.0); BUN Creatinine Ratio 24.6 (10-20); Creatinine Clr Calc Pharmacy 116.8 ml/min; Est GFR (African American) 111.2 ml/min; Magnesium 1.9 mg/dl (1.7-2.4); Total Protein 6.9 gm/dl (6.0-8.3)
[2022-05-08] MEDS ORDERED: ONDANSETRON INJ 2 MG/ML 2 ML VIAL IV STA ×2 (01:42→01:50)
[2022-05-08] MEDS ORDERED: KETOROLAC 30 MG/ML VIAL IV ONE (01:42)
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
[2022-05-08 02:20] LABS: Appearance Urine Clear (Clear); Bacteria Urine Automated Negative (Negative); Bilirubin Urine Negative (Negative); Blood Urine Negative (Negative); Cast Urine Automated 0 /lpf (0-5); Color Urine Yellow; Glucose Urine UA Negative (Negative); Ketones Urine Negative (Negative); Leukocyte Esterase Urine Trace (Negative); Nitrite Urine Negative (Negative); Protein Urine Negative (Negative); RBC Urine Automated 0-4 /hpf (0-4); Specific Gravity Urine 1.011 (1.000-1.030); Urobilinogen Urine Negative (Negative); pH Urine 7.5 (4.5-7.5)
[2022-05-08 02:53] LABS: Influenza A virus by PCR Negative (Neg); Influenza B virus by PCR Negative (Neg); RSV by PCR Negative (Neg); SARS CoV2 RNA(COVID-19) InHosp NEGATIVE (Negative)
[2022-05-08 03:22] LABS: Partial Thromboplastin Time 26.2 Seconds (21.0-31.0); Prothrombin Time 10.6 Seconds (9.0-12.0)
[2022-05-08] MEDS ORDERED: HYDROmorphone INJ 1 MG/ML SYRINGE IV STA (04:50)
[2022-05-08] MEDS ORDERED: cefTRIAXone SODIUM 1,000 MG/50 ML BAG IV STA (04:55)
[2022-05-08] MEDS ORDERED: VANCOMYCIN CONSULT ACTIVE PRN (04:55)
[2022-05-08] MEDS ORDERED: VANCOMYCIN HCL 2,500 MG in SODIUM CHLORIDE 0.9% 500 ML IV ONE (04:55)
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
[2022-05-08] MEDS ORDERED: ACETAMINOPHEN 325 MG TAB PO PRN (08:15)
[2022-05-08] MEDS ORDERED: ONDANSETRON INJ 2 MG/ML 2 ML VIAL IV PRN (08:15)
[2022-05-08] MEDS ORDERED: PIPERACILLIN/TAZOBACTAM 4.5 GM/120 ML BAG IV STA (08:26)
[2022-05-08] MEDS ORDERED: ENOXAPARIN INJ 40 MG/0.4 ML SYR SQ SCH (09:00)
[2022-05-08] MEDS ORDERED: PANTOprazole 40 MG TAB PO SCH (09:00)
--- NOTE | 2022-05-08 09:46 | Pharmacy Report ---
Pharmacy Vanc AUC Short Note - Date of Service May 08, 2022 - Assessment & Plan Assessment 57 year old F receiving vancomycin/Zosyn for treatment of SSTI. Pertinent microbiologic data includes: N/A. Day # 1 of antimicrobial therapy. Plan Vancomycin * AUC/NAOMY is the preferred PK/PD target for vancomycin * AUC guided dosing is effective and associated with decreased risk of nephrotoxicity compared to traditional trough targets * vancomycin 1250 mg IV q12 is predicted to achieve target AUC/NAOMY of 400-600 mg/L.hr and may be associated with a 11 % risk of nephrotoxicity * Trough to be ordered if vancomycin continued beyond 48 hours Pharmacy will continue to follow and will adjust dose/frequency as necessary. Thank you.
[2022-05-08] MEDS ORDERED: PIPERACILLIN/TAZOBACTAM 4.5 GM/120ML D5W IV ONE (11:17)
--- NOTE | 2022-05-08 13:32 | Electrocardiogram Report ---
Test Reason : Blood Pressure : / mmHG Vent. Rate : 081 BPM Atrial Rate : 081 BPM P-R Int : 134 ms QRS Dur : 080 ms QT Int : 356 ms P-R-T Axes : 035 001 027 degrees QTc Int : 413 ms Normal sinus rhythm Cannot rule out Anterior infarct , age undetermined Abnormal ECG When compared with ECG of 06-JUL-2018 13:37, No significant change was found Confirmed by Osorio Lynch ([id number]) on 05/08/2022 1:32:35 PM Referred By: REFERRED SELF Confirmed By:Osorio Lynch
[2022-05-08] MEDS ORDERED: PIPERACILLIN/TAZOBACTAM 4.5 GM in DEXTROSE 5% 100 ML IV SCH (14:00)
--- NOTE | 2022-05-08 14:04 | Discharge Summary ---
Date of Service May 08, 2022 Admission HPI Per Admitting Provider The patient is a 57-year-old female with past medical history including hypertension, disc metabolic syndrome X, esophageal stricture, hiatal hernia, and morbid obesity. She presents with symptoms as noted above. She did receive a tetanus booster yesterday. Admission Exam Per Admitting Provider The patient is awake, alert and oriented 3, well developed and well nourished, normocephalic and atraumatic, lying in bed and in no acute distress. HEENT--PERRL, EOMI, mucous membranes and oropharynx dry. Neck--supple. No JVD. No bruits. Thyroid normal, trachea midline, no adenopathy. Heart--normal S1 and S2. No murmurs, rubs or gallops. Lungs--clear bilaterally, no respiratory distress, no accessory muscle use. Abdomen--normal bowel sounds and soft. Nontender. Nondistended. Morbidly obese Extremities--no cyanosis or clubbing. No edema. Dermatologic--right thigh wound with proper apposition, with moderate erythema in demarcated area Neurologic--cranial nerves II through XII grossly intact. Rheumatologic--normal range of motion. Psychiatric--normal affect. Principal Diagnosis Right thigh laceration with wound infection Discharge Exam Constitutional WD/WN, vitals as above Eyes PERRL, conjunctivae normal, anicteric sclerae ENMT external ear and nose normal, oropharynx normal Neck trachea midline, no thyromegaly Respiratory normal respiratory effort, lungs clear to auscultation Cardiovascular RRR, no murmur, no edema Chest (Breasts) Chest: normal inspection of chest Skin 8cm laceration with suture repair noted on anterior right thigh with surrounding warmth erythema swelling and bruising noted within marker boundary made yesterday, no exudate noted, mild pain on palpation. Discharge Data Allergies Allergy/AdvReac Type Severity Reaction Status Date / Time peanut Allergy Intermediate tingling Verified 08/28/21 16:30 in mouth/throat tree nut Allergy Intermediate TINGLING Verified 08/28/21 16:30 IN MOUTH/THROAT Consultations 05/08/22 05:06 ED Decision to Admit Stat Hospital Course (1) Wound infection, posttraumatic: 57F with PMH GERD HTN here for fever 2/2 to right thigh laceration with wound infection (1) Wound infection, posttraumatic: Patient started on vancomycin IV and ceftriaxone IV in ED, switched to Vancomycin and zosyn IV. No repeat fevers noted in hospital. Erythema borders marked in ink, currently have not spread past borders. Patient to be discharged on Augmentin 875mg q12hr for 7 days, broader coverage covers skin infections and possible gram negative/anaerobic bacteria. Patient to see PCP in 1 week. If patient's wound infection does not improve after 2-3 days of Augmentin, consider adding doxycycline for MRSA coverage. (2) Laceration of right thigh: See above Patient did receive tetanus booster and sutures 05/06. Sutures to be removed in 14 days after placement. (3) Hypertension: Blood pressure controlled on no specific treatment (4) Dysmetabolic syndrome X: Currently not undergoing medical treatment (5) Esophageal stricture with GERD: Continue pantoprazole 40 mg daily (2) Laceration of right thigh: Total Time Total Time Spent Total Time Spent (In Minutes): see attending attestation Discharge Plan Discharge Items Patient Disposition: Home - Self-Care Reason For Visit: RIGHT THIGH AND WOUND INFECTION Discharge Diagnosis: right thigh laceration with wound infection Activity: Resume your previous activity Non-emergency contact: Primary Care Provider Call non-emergency contact if: you have any medication questions, your symptoms worsen and you have a fever Follow-up/Referrals: Shanique Hawley MD [Primary Care Provider] - Diet: Regular Addtl Attending Provider Instructions: You were admitted to the hospital for right thigh laceration and wound infection with fever. You were treated with antibiotics. We will send you home on a broader spectrum of antibiotic called Augmentin. Please take Augmentin twice a day for 7 days. Please follow up with your PCP in 1 week. Please keep your wound clean and dry. You may shower, but please avoid soaking or hot tubs. You may use bacitracin ointment on the wound. Please follow with your PCP to have your sutures removed after 14 days. A discharge summary will be sent to your primary care physician to ensure continuity of care. Please bring this discharge summary with you to your next office appointment so that your provider can review it at that time. Follow-up appointments: Make a follow-up appointment with your PCP within the next week. It is very important that you follow up with them shortly after discharge from the hospital. Keep all your follow-up appointments as already scheduled. If you cannot make an appointment, notify your provider. Medications: Your medication list has been reviewed and reconciled upon discharge to ensure accuracy and continuity of care. An updated list of all your medications is included with your hospital discharge paperwork. Please review this list closely, and make note of any changes. * We sent a new medication called Augmentin to your pharmacy. Take Augmentin (875mg) one tablet every 12 hours for 7 days. Take your medications as instructed; do not skip a dose of your medicines. Make sure all of your doctors know every medicine you are taking (including yged-crx-gfarxhd medicines, vitamins, and supplements). Call your primary care provider before taking any new medicines (including ssiu-pxg-hrikyjc medicines, vitamins, and supplements), because some of these may interact with your current medications, or may make your symptoms worse. Tell your primary care provider if you cannot afford your medications. CONTACT YOUR PRIMARY CARE PROVIDER if you experience any of the following: increased swelling/redness above your wound loss of sensation, numbness or tingling of your right leg Difficulty following your treatment plan, or difficulty taking medications CALL 911 OR GO TO THE EMERGENCY DEPARTMENT if you experience any of the following: Sudden, severe abdominal pain or nausea/vomiting Severe chest pain, or chest pain that radiates (moves) to your jaw or arm Sudden, severe shortness of breath or difficulty breathing Thank you for allowing us to participate in your care. Pending Studies at Discharge: No Stand-Alone Forms: My [facility], Smoking Cessation Medications and DC Order Prescriptions: New amoxicillin-pot clavulanate 875-125 mg tablet 1 tab PO Q12H 7 Days Qty: 14 RF: 0 Continued pantoprazole 40 mg tablet,delayed release (DR/EC) See Rx Instructions .ROUTE .COMPLEX Qty: 90 RF: 0 Discontinued amoxicillin-pot clavulanate [Augmentin] 875-125 mg tablet 1 tab PO Q12H Qty: 20 RF: 0 prednisone 20 mg tablet See Rx Instructions PO .COMPLEX Qty: 30 RF: 0 cephalexin 500 mg capsule 500 mg PO QID 7 Days Qty: 28 RF: 0 Discharge Orders: Discharge Order (Routine); Ordered 05/08/22 Ordered By: Calli Shaw Admission Data Admit Date/Time: 05/08/22 05:32 Attending Provider: Speedy Ruffin Admit Provider: Anant Rodriguez Primary Care Provider: Shanique Hawley V. Other Providers: Anant Rodriguez Other Interventions: Discharge Summary Assessment (RN) Last Done: 05/08/22 17:16 Supervising Physician Co-Signing Physician Notes I personally examined the patient and verified all johnson points of history and exam, discussed case, and agree with decision making with Dr Shaw. Leg feeling okay. Sore, but otherwise okay. No fevers since admission. Has a bit of a dull headache back of the neck and around the front of the head left worse than right. Vitals noted, in general she is awake and alert pleasant no distress. HEENT normocephalic atraumatic mucous membranes moist. Osteopathic/musculoskeletal shows left greater than right suboccipital musculature high tone/tender/decreased range of motioninhibitory pressure/counterstrainimproved, patient tolerated well and noted some improvement in her headache. Skin shows her right medial thigh to have a fairly long laceration that is well approximated with no exudate, dehiscence, or other bruising. Surrounding it in an outlined area is an area of erythema, tenderness, and a bit of thickness to the skinbut no fluctuance. Whenever I press on the area of erythema, no exudate is expressible from the sutured wound. Cellulitisaround the area of lacerationgiven that she was only on the Keflex for about 3 doses, hesitate to even be L to call us a treatment failure, but given that she worsened and returned with some constitutional symptoms, and given that it was a cut with significant exposure to dirt, I do think that broadening to cover gram-negatives is reasonableAugmentin. Close outpatient follow-up., Stable for home. To return if any worsening. Headache/cervical somatic dysfunctionOMT as above otherwise as above Resident Activity Tracking Resident Involvement: Resident Care Provided Care Provided: Adult Hospital Medicine
[2022-05-08] MEDS ORDERED: VANCOMYCIN HCL 1,250 MG in SODIUM CHLORIDE 0.9% 250 ML IV SCH (18:00)
--- NOTE | 2022-05-08 18:47 | Billing Data ---
Date of Service May 08, 2022 Coding Level of Care Code D/C DAY MANAGEMENT <30 MINS
--- NOTE | 2022-05-08 18:47 | Hospitalist Progress Note ---
Date of Service May 08, 2022 Assessment & Plan Admission and Anticipated Discharge Date Admission Date: May 08, 2022 Results & Data Results & Data ([facility]) Vital Signs (Past 12 Hours) Vital Signs Temp Pulse Resp BP Pulse Ox 05/08/22 17:16 99.3 F 72 18 140/65 96 05/08/22 11:27 72 18 140/65 96 05/08/22 08:58 62 20 114/67 94 05/08/22 07:00 66 22 99/53 L 92 PG Care Time/CCT Total # of Minutes Spent Total Time Spent with Patient: Total time spent is greater than 50% in coordination of care (as documented) at patient's floor/unit and/or counseling patient: Coding Level of Care Code None CPT Codes Musculoskeletal - Musculoskeletal: 34906 Oste[address] Humza Tr 1-2 Body regions ([id number])
== END 2022-05-08 17:24 | disposition home or self-care (01) | DRG 603 ==
LOC: ED 21:50 → EDINP 05-08 05:32 → SUATTDRO 05-08 05:32 → EDINP 05-08 08:30